=== PATIENT | female | born 1960 | race Caucasian/White ===

== ENCOUNTER 2018-01-17 12:00 | Emergency (ER) | payer MEDICARE, BC ==
[2018-01-17] MEDS ORDERED: Sodium Chloride 0.9% 10 ML Syringe FLUSH PRN (12:45)
[2018-01-17] MEDS ORDERED: Sodium Chloride 0.9% 1,000 ML IV ONE (12:45)
--- NOTE | 2018-01-17 13:38 | CR ---
Chest: Frontal view of the chest was obtained. Comparison: No prior chest x-ray. Heart size and mediastinum are normal. Lungs are clear with no acute parenchymal densities. Bony structures show scoliosis within the spine. Impression: 1. Nothing acute is appreciated on frontal chest x-ray. Diagnostic code #1
--- NOTE | 2018-01-17 14:55 | EDM.PDOC ---
ED HPI GENERAL MEDICAL PROBLEM - General Chief Complaint: Behavioral/Psych Stated Complaint: [facility] Time Seen by Provider: 01/17/18 12:25 Source of Information: Reports: Patient History Limitations: Reports: No Limitations - History of Present Illness INITIAL COMMENTS - FREE TEXT/NARRATIVE: 57-year-old female arrives via [facility] ambulance service from the [facility] for evaluation and treatment of syncope. Patient reports that she is "very ill" for the last few weeks. Feels this last week her symptoms have significantly worsening. She is currently complaining of generalized weakness. She reports numbness and tingling in the arms and legs. She states that she cannot get up and move due to her weakness and fatigue. She reports dizziness, only present with movement. She is also complaining of pain to the arms, legs and low back. When she is laying and resting she is not having dizziness at this time. She states she has chest pain and it is hard to breathe. She denies any headaches, fevers, chills or diarrhea. Reports no recent gastroenteritis. Patient feels her symptoms are due to her medications. She is on multiple medications for anxiety, depression and bipolar, she states that this happened about one year ago. She was in [facility]. She states that she needs her medications adjusted. She currently sees Dr. Chowdhury at [facility] and Dr. Simmons as her primary care provider. Leg Pain Score (Numeric/FACES): 3 - Related Data Allergies Allergy/AdvReac Type Severity Reaction Status Date / Time No Known Allergies Allergy Verified 01/17/18 12:13 Home Meds: Home Meds ClonazePAM [KlonoPIN] 0.5 mg PO TID 01/17/18 [History] Docusate Sodium [Colace] 100 mg PO BID 01/17/18 [History] Loratadine 10 mg PO DAILY 01/17/18 [History] QUEtiapine [SEROquel] 250 mg PO BEDTIME 01/17/18 [History] Vortioxetine Hydrobromide [Trintellix] 20 mg PO BEDTIME 01/17/18 [History] buPROPion [buPROPion XL] 450 mg PO DAILY 01/17/18 [History] Past Medical History Respiratory History: Reports: Asthma Psychiatric History: Reports: Anxiety, Bipolar, Depression, Other (See Below) Other Psychiatric History: has had procdure done ECT - Past Surgical History HEENT Surgical History: Reports: Cataract Surgery Female Surgical History: Reports: Tubal Ligation Social & Family History - Tobacco Use Smoking Status *Q: Former Smoker Used Tobacco, but Quit: Yes Month/Year Tobacco Last Used: 30 - Caffeine Use Caffeine Use: Reports: Coffee, Tea - Recreational Drug Use Recreational Drug Use: No ED ROS GENERAL - Review of Systems Review Of Systems: See Below Constitutional: Reports: Malaise, Weakness, Fatigue. Denies: Fever, Chills Respiratory: Reports: Shortness of Breath, Cough Cardiovascular: Reports: Chest Pain GI/Abdominal: Denies: Abdominal Pain, Diarrhea, Nausea, Vomiting Musculoskeletal: Reports: Back Pain (low back) Neurological: Reports: Numbness, Syncope, Tingling, Difficulty Walking (unable to walk). Denies: Headache ED EXAM, NEURO - Physical Exam Exam: See Below Exam Limited By: No Limitations General Appearance: Alert, WD/WN, No Apparent Distress, Thin Eye Exam: Bilateral Eye: Normal Inspection, PERRL Ears: Normal External Exam Nose: Normal Inspection Throat/Mouth: Normal Inspection, Normal Oropharynx, Normal Voice, No Airway Compromise Respiratory/Chest: No Respiratory Distress, Lungs Clear, Normal Breath Sounds Cardiovascular: Normal Peripheral Pulses, Regular Rate, Rhythm, No Murmur GI/Abdominal: Soft, Non-Tender Neurological: Alert, Normal Dorsiflexion, Normal Plantar Flexion, Other (unable to walk). No: Abnormal Sensation, Abnormal Light Touch, Abnormal Pin Prick, Babinski DTR: 1+: Achilles (R), Achilles (L), 2+: Bicep (R), Bicep (L) Extremities: Normal Inspection, Non-Tender Psychiatric: Anxious Skin Exam: Warm, Dry, Normal Color EKG INTERPRETATION EKG Date: 01/17/18 Time: 13:05 Rhythm: NSR Rate (Beats/Min): 73 [place]: Normal P-Wave: Present QRS: Normal ST-T: Normal QT: Normal EKG Interpretation Comments: NSR at 73 bpm. No acute changes. Reviewed by myself and Dr. Bijan Montes Course - Vital Signs Last Recorded V/S: Last Vital Signs Temp 36.7 C 01/17/18 12:12 Pulse 82 01/17/18 12:12 Resp 18 01/17/18 12:12 BP 140/96 H 01/17/18 12:12 Pulse Ox 100 01/17/18 12:12 Orthostatic Blood Pressure [ 150/77 Sitting] Orthostatic Blood Pressure [ 141/84 Supine] - Orders/Labs/Meds Orders: Active Orders 24 hr Category Date Time Status EKG Documentation Completion [RC] ASDIRECTED Care 01/17/18 12:45 Active Orthostatic Vital Signs [RC] ASDIRECTED Care 01/17/18 12:45 Active Peripheral IV Care [RC] . DIRECTED Care 01/17/18 12:45 Active DRUG SCREEN, URINE [URCHEM] Stat Lab 01/17/18 14:30 Ordered UA W/MICROSCOPIC [URIN] Stat Lab 01/17/18 14:30 Ordered Sodium Chloride 0.9% [Saline Flush] Med 01/17/18 12:45 Active 10 ml FLUSH ASDIRECTED PRN Peripheral IV Insertion Adult [OM.PC] Routine Oth 01/17/18 12:45 Ordered EKG 12 Lead [EK] Stat Ther 01/17/18 12:45 Ordered Medication Orders Sodium Chloride (Saline Flush) 10 ml FLUSH ASDIRECTED PRN PRN Reason: Keep Vein Open Last Admin: 01/17/18 13:20 Dose: 10 ml Labs: Laboratory Tests 01/17/18 01/17/18 01/17/18 Range/Units 13:25 13:25 13:25 WBC 4.16 (3.98-10.04) K/mm3 RBC 4.65 (3.98-5.22) M/mm3 Hgb 14.1 (11.2-15.7) gm/L Hct 41.6 (34.1-44.9) % MCV 89.5 (79.4-94.8) fl MCH 30.3 (25.6-32.2) pg MCHC 33.9 (32.2-35.5) g/dl RDW Std Deviation 40.6 (36.4-46.3) fL Plt Count 276 (182-369) K/mm3 MPV 10.3 (9.4-12.3) fl Neutrophils % (Manual) 41 (40-60) % Band Neutrophils % 0 (0-10) % Lymphocytes % (Manual) 51 H (20-40) % Atypical Lymphs % 0 % Monocytes % (Manual) 7 (2-10) % Eosinophils % (Manual) 0 L (0.7-5.8) % Basophils % (Manual) 1 (0.1-1.2) Platelet Estimate Adequate RBC Morph Comment Normal Sodium 137 (136-145) mEq/L Potassium 4.4 (3.5-5.1) mEq/L Chloride 100 (98-107) mEq/L Carbon Dioxide 21 (21-32) mEq/L Anion Gap 20.4 H (5-15) BUN 20 H (7-18) mg/dL Creatinine 1.0 (0.55-1.02) mg/dL Est Cr Clr Drug Dosing 57.08 mL/min Estimated GFR (MDRD) 57 (>60) mL/min BUN/Creatinine Ratio 20.0 H (14-18) Glucose 81 (74-106) mg/dL Calcium 9.5 (8.5-10.1) mg/dL Total Bilirubin 0.6 (0.2-1.0) mg/dL AST 13 L (15-37) U/L ALT 19 (14-59) U/L Alkaline Phosphatase 79 (46-116) U/L Creatine Kinase 111 (26-192) U/L Troponin I < 0.017 (0.00-0.056) ng/mL C-Reactive Protein < 0.2 (<1.0) mg/dL Total Protein 8.2 (6.4-8.2) g/dl Albumin 4.3 (3.4-5.0) g/dl Globulin 3.9 gm/dL Albumin/Globulin Ratio 1.1 (1-2) TSH 3rd Generation 2.207 (0.358-3.74) uIU/mL HCG, Qual (NEGATIVE) Urine Color (Yellow) Urine Appearance (Clear) Urine pH (5.0-8.0) Ur Specific [place] (1.005-1.030) Urine Protein (Negative) Urine Glucose (UA) (Negative) Urine Ketones (Negative) Urine Occult Blood (Negative) Urine Nitrite (Negative) Urine Bilirubin (Negative) Urine Urobilinogen (0.2-1.0) Ur Leukocyte Esterase (Negative) Urine RBC (0-5) /hpf Urine WBC (0-5) /hpf Ur Epithelial Cells (0-5) /hpf Urine Bacteria (FEW) /hpf Urine Mucus (FEW) /hpf Salicylates (2.8-20) mg/dL Urine Opiates Screen (NEGATIVE) Ur Buprenorphine Scrn (NEGATIVE) Ur Oxycodone Screen (NEGATIVE) Urine Methadone Screen (NEGATIVE) Ur Propoxyphene Screen (NEGATIVE) Acetaminophen (10-30) ug/mL Ur Barbiturates Screen (NEGATIVE) Ur Tricyclics Screen (NEGATIVE) Ur Phencyclidine Scrn (NEGATIVE) Ur Amphetamine Screen (NEGATIVE) U Methamphetamines Scrn (NEGATIVE) U Benzodiazepines Scrn (NEGATIVE) U Cocaine Metab Screen (NEGATIVE) U Marijuana (THC) Screen (NEGATIVE) Ethyl Alcohol 0.00 (0.00) gm% 01/17/18 01/17/18 01/17/18 Range/Units 13:25 13:25 13:25 WBC (3.98-10.04) K/mm3 RBC (3.98-5.22) M/mm3 Hgb (11.2-15.7) gm/L Hct (34.1-44.9) % MCV (79.4-94.8) fl MCH (25.6-32.2) pg MCHC (32.2-35.5) g/dl RDW Std Deviation (36.4-46.3) fL Plt Count (182-369) K/mm3 MPV (9.4-12.3) fl Neutrophils % (Manual) (40-60) % Band Neutrophils % (0-10) % Lymphocytes % (Manual) (20-40) % Atypical Lymphs % % Monocytes % (Manual) (2-10) % Eosinophils % (Manual) (0.7-5.8) % Basophils % (Manual) (0.1-1.2) Platelet Estimate RBC Morph Comment Sodium (136-145) mEq/L Potassium (3.5-5.1) mEq/L Chloride (98-107) mEq/L Carbon Dioxide (21-32) mEq/L Anion Gap (5-15) BUN (7-18) mg/dL Creatinine (0.55-1.02) mg/dL Est Cr Clr Drug Dosing mL/min Estimated GFR (MDRD) (>60) mL/min BUN/Creatinine Ratio (14-18) Glucose (74-106) mg/dL Calcium (8.5-10.1) mg/dL Total Bilirubin (0.2-1.0) mg/dL AST (15-37) U/L ALT (14-59) U/L Alkaline Phosphatase (46-116) U/L Creatine Kinase (26-192) U/L Troponin I (0.00-0.056) ng/mL C-Reactive Protein (<1.0) mg/dL Total Protein (6.4-8.2) g/dl Albumin (3.4-5.0) g/dl Globulin gm/dL Albumin/Globulin Ratio (1-2) TSH 3rd Generation (0.358-3.74) uIU/mL HCG, Qual Negative (NEGATIVE) Urine Color (Yellow) Urine Appearance (Clear) Urine pH (5.0-8.0) Ur Specific [place] (1.005-1.030) Urine Protein (Negative) Urine Glucose (UA) (Negative) Urine Ketones (Negative) Urine Occult Blood (Negative) Urine Nitrite (Negative) Urine Bilirubin (Negative) Urine Urobilinogen (0.2-1.0) Ur Leukocyte Esterase (Negative) Urine RBC (0-5) /hpf Urine WBC (0-5) /hpf Ur Epithelial Cells (0-5) /hpf Urine Bacteria (FEW) /hpf Urine Mucus (FEW) /hpf Salicylates 1.0 L (2.8-20) mg/dL Urine Opiates Screen (NEGATIVE) Ur Buprenorphine Scrn (NEGATIVE) Ur Oxycodone Screen (NEGATIVE) Urine Methadone Screen (NEGATIVE) Ur Propoxyphene Screen (NEGATIVE) Acetaminophen 0 L (10-30) ug/mL Ur Barbiturates Screen (NEGATIVE) Ur Tricyclics Screen (NEGATIVE) Ur Phencyclidine Scrn (NEGATIVE) Ur Amphetamine Screen (NEGATIVE) U Methamphetamines Scrn (NEGATIVE) U Benzodiazepines Scrn (NEGATIVE) U Cocaine Metab Screen (NEGATIVE) U Marijuana (THC) Screen (NEGATIVE) Ethyl Alcohol (0.00) gm% 01/17/18 01/17/18 Range/Units 14:30 14:30 WBC (3.98-10.04) K/mm3 RBC (3.98-5.22) M/mm3 Hgb (11.2-15.7) gm/L Hct (34.1-44.9) % MCV (79.4-94.8) fl MCH (25.6-32.2) pg MCHC (32.2-35.5) g/dl RDW Std Deviation (36.4-46.3) fL Plt Count (182-369) K/mm3 MPV (9.4-12.3) fl Neutrophils % (Manual) (40-60) % Band Neutrophils % (0-10) % Lymphocytes % (Manual) (20-40) % Atypical Lymphs % % Monocytes % (Manual) (2-10) % Eosinophils % (Manual) (0.7-5.8) % Basophils % (Manual) (0.1-1.2) Platelet Estimate RBC Morph Comment Sodium (136-145) mEq/L Potassium (3.5-5.1) mEq/L Chloride (98-107) mEq/L Carbon Dioxide (21-32) mEq/L Anion Gap (5-15) BUN (7-18) mg/dL Creatinine (0.55-1.02) mg/dL Est Cr Clr Drug Dosing mL/min Estimated GFR (MDRD) (>60) mL/min BUN/Creatinine Ratio (14-18) Glucose (74-106) mg/dL Calcium (8.5-10.1) mg/dL Total Bilirubin (0.2-1.0) mg/dL AST (15-37) U/L ALT (14-59) U/L Alkaline Phosphatase (46-116) U/L Creatine Kinase (26-192) U/L Troponin I (0.00-0.056) ng/mL C-Reactive Protein (<1.0) mg/dL Total Protein (6.4-8.2) g/dl Albumin (3.4-5.0) g/dl Globulin gm/dL Albumin/Globulin Ratio (1-2) TSH 3rd Generation (0.358-3.74) uIU/mL HCG, Qual (NEGATIVE) Urine Color Light yellow (Yellow) Urine Appearance Clear (Clear) Urine pH 6.5 (5.0-8.0) Ur Specific [place] 1.015 (1.005-1.030) Urine Protein Negative (Negative) Urine Glucose (UA) Negative (Negative) Urine Ketones 2+ H (Negative) Urine Occult Blood Negative (Negative) Urine Nitrite Negative (Negative) Urine Bilirubin Negative (Negative) Urine Urobilinogen 0.2 (0.2-1.0) Ur Leukocyte Esterase Trace H (Negative) Urine RBC 0-5 (0-5) /hpf Urine WBC 0-5 (0-5) /hpf Ur Epithelial Cells Not seen (0-5) /hpf Urine Bacteria Not seen (FEW) /hpf Urine Mucus Not seen (FEW) /hpf Salicylates (2.8-20) mg/dL Urine Opiates Screen Negative (NEGATIVE) Ur Buprenorphine Scrn Negative (NEGATIVE) Ur Oxycodone Screen Negative (NEGATIVE) Urine Methadone Screen Negative (NEGATIVE) Ur Propoxyphene Screen Negative (NEGATIVE) Acetaminophen (10-30) ug/mL Ur Barbiturates Screen Negative (NEGATIVE) Ur Tricyclics Screen Negative (NEGATIVE) Ur Phencyclidine Scrn Negative (NEGATIVE) Ur Amphetamine Screen Negative (NEGATIVE) U Methamphetamines Scrn Negative (NEGATIVE) U Benzodiazepines Scrn Negative (NEGATIVE) U Cocaine Metab Screen Negative (NEGATIVE) U Marijuana (THC) Screen Negative (NEGATIVE) Ethyl Alcohol (0.00) gm% Meds: Medications Generic Name Dose Route Start Last Admin Trade Name Freq PRN Reason Stop Dose Admin Sodium Chloride 10 ml 01/17/18 12:45 01/17/18 13:20 Saline Flush FLUSH 10 ml ASDIRECTED PRN Administration Keep Vein Open Discontinued Medications Generic Name Dose Route Start Last Admin Trade Name Freq PRN Reason Stop Dose Admin Sodium Chloride 1,000 mls @ 999 mls/hr 01/17/18 12:45 01/17/18 13:20 Normal Saline IV 01/17/18 13:45 999 mls/hr ONETIME ONE Administration Lorazepam 1 mg 01/17/18 15:20 01/17/18 18:14 Ativan IVPUSH 01/17/18 15:21 Not Given ONETIME ONE - Radiology Interpretation Free Text/Narrative:: Chest x-ray shows no acute intrathoracic process. - Re-Assessments/Exams Free Text/Narrative Re-Assessment/Exam: 01/17/18 15:51 Patient was shaking proclaiming "I'm having a seizure ". No obvious seizure. 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 I ordered her 1 mg IV Ativan which she declined. I asked Dr. Bijan Montes to see the patient as she is becoming quite difficult. She is adamant that she be admitted and is requesting to go to [place]. Dr. Montes has seen the patient and agrees this is likely conversion disorder. 01/17/18 18:22 I contacted [facility]. Given her symptoms, unable at this time to perform activities of daily living, unable to accept her as that unit is currently full. I discussed this with the patient told her that if her symptoms have improved and she can perform activities of daily living I could potentially send her to [place]. Since hearing this her symptoms have improved and she has full range of motion of her hands and her feet are steadily improving. Her mom states that her paralysis normally only last several hours. I do feel she needs to be admitted as she continues to have "paralysis" . I feel this is possibly conversion disorder. I did talk with Dr. Dania benitez at [facility] in [place]. He is unable to admit her for conversion disorder. Recommended I contact medical. I detected Dr. Hidalgo, hospitalist, she has agreed to accept the patient. I discussed with the patient going ambulance versus private vehicle. Family has some concerns with her going by private vehicle. Patient feels that she needs an ambulance transfer. We will transfer by ambulance to [place] for further workup of her paralysis as well as psychiatric consult. Departure - Departure Time of Disposition: 18:55 Disposition: DC/Tfer to Acute Hospital 02 Condition: Fair Clinical Impression: Paralysis, Bipolar 2 disorder - Discharge Information Referrals: Rey He MD [Primary Care Provider] - Forms: ED Department Discharge Additional Instructions: Patient to be transported by ground EMS to [place] in [place]. Dr. Hidalgo accepting. - My Orders Last 24 Hours: My Active Orders 01/17/18 12:45 EKG Documentation Completion [RC] ASDIRECTED Orthostatic Vital Signs [RC] ASDIRECTED Peripheral IV Care [RC] . DIRECTED Sodium Chloride 0.9% [Saline Flush] 10 ml FLUSH ASDIRECTED PRN Peripheral IV Insertion Adult [OM.PC] Routine EKG 12 Lead [EK] Stat 01/17/18 14:30 DRUG SCREEN, URINE [URCHEM] Stat UA W/MICROSCOPIC [URIN] Stat - Assessment/Plan Last 24 Hours: My Active Orders 01/17/18 12:45 EKG Documentation Completion [RC] ASDIRECTED Orthostatic Vital Signs [RC] ASDIRECTED Peripheral IV Care [RC] . DIRECTED Sodium Chloride 0.9% [Saline Flush] 10 ml FLUSH ASDIRECTED PRN Peripheral IV Insertion Adult [OM.PC] Routine EKG 12 Lead [EK] Stat 01/17/18 14:30 DRUG SCREEN, URINE [URCHEM] Stat UA W/MICROSCOPIC [URIN] Stat
[2018-01-17] MEDS ORDERED: LORazepam 2 MG/ML SDV IVPUSH ONE (15:20)
== END 2018-01-17 19:00 ==
LOC: JD.ED 12:00 → SUPCPDRO 12:00 → JD.ED 19:00
DX: G83.9 Paralytic syndrome, unspecified (principal); F31.81 Bipolar II disorder; Z79.899 Other long term (current) drug therapy; Z87.891 Personal history of nicotine dependence
CPT/HCPCS: 36415; 71045; 80053; 80306; 81001; 82550; 84443; 84484; 84703; 85007; 85027; 86140; 93005; 96360; 99285; G0480; J7040; J7050; 93010; 99284

== ENCOUNTER 2019-09-29 14:17 | Emergency (ER) | payer MEDICARE, BC ==
--- NOTE | 2019-09-29 14:38 | EDM.PDOC ---
ED HPI GENERAL MEDICAL PROBLEM - General Chief Complaint: Head Injury Stated Complaint: HEAD INJURY Time Seen by Provider: 09/29/19 14:27 Source of Information: Reports: Patient History Limitations: Reports: No Limitations - History of Present Illness INITIAL COMMENTS - FREE TEXT/NARRATIVE: Patient's unfortunate 59-year-old female who presents emergency Department today with complaint of headache. Patient reports that she was in her normal state of health until one week ago when she was walking up some steps and lost her balance and fell backwards and hit the back of her head on the steps that she slid down 2 deaths. Her loss of consciousness did not have any nausea no vomiting however, she continues to have headache which she reports is a dull aching type headache to the frontal part of her head. And secondary this patient presented to the emergency Department today for further evaluation. Patient has a long-standing history of what she reports as chronic conversion disorder and bipolar Head Pain Score (Numeric/FACES): 7 - Related Data Allergies Allergy/AdvReac Type Severity Reaction Status Date / Time No Known Allergies Allergy Verified 09/29/19 14:33 Home Meds: Home Meds ClonazePAM [KlonoPIN] 0.5 mg PO TID 01/17/18 [History] Docusate Sodium [Colace] 100 mg PO BID 01/17/18 [History] Loratadine 10 mg PO DAILY 01/17/18 [History] QUEtiapine [SEROquel] 250 mg PO BEDTIME 01/17/18 [History] Vortioxetine Hydrobromide [Trintellix] 20 mg PO BEDTIME 01/17/18 [History] buPROPion [buPROPion XL] 450 mg PO DAILY 01/17/18 [History] Past Medical History Respiratory History: Reports: Asthma Psychiatric History: Reports: Anxiety, Bipolar, Depression, Other (See Below) Other Psychiatric History: has had procdure done ECT - Past Surgical History HEENT Surgical History: Reports: Cataract Surgery Female Surgical History: Reports: Tubal Ligation Social & Family History - Caffeine Use Caffeine Use: Reports: Coffee, Tea ED ROS GENERAL - Review of Systems Review Of Systems: See Below Constitutional: Denies: Fever, Chills GI/Abdominal: Denies: Nausea, Vomiting Neurological: Reports: Headache. Denies: Confusion, Dizziness ED EXAM, HEAD INJURY - Physical Exam Exam: See Below Exam Limited By: No Limitations General Appearance: Alert, WD/WN, Mild Distress Head: Atraumatic, Normocephalic Eyes: Bilateral Eye: EOMI, PERRL Ears: Normal External Exam, Normal Canal, Hearing Grossly Normal, Normal TMs Nose: Normal Inspection, Normal Mucousa, No Blood Throat/Mouth: Normal Inspection, Normal Lips, Normal Teeth, Normal Gums, Normal Oropharynx, Normal Voice, No Airway Compromise Neck: Non-Tender, Full Range of Motion, Normal Alignment, Normal Inspection Respiratory: No Respiratory Distress, Lungs Clear, Normal Breath Sounds, No Accessory Muscle Use, Chest Non-Tender Cardiovascular: Normal Peripheral Pulses, Regular Rate, Rhythm, No Edema, No Gallop, No JVD, No Murmur, No Rub GI/Abdominal Exam: Normal Bowel Sounds, Soft, Non-Tender, No Organomegaly, No Distention, No Abnormal Bruit, No Mass Back Exam: Full Range of Motion, Normal Inspection, NT Extremities: Normal Inspection, Normal Range of Motion, Non-Tender, No Pedal Edema, Normal Capillary Refill Neurologic: [facility] facility psychiatrist II-XII nml As Tested, No Motor/Sensory Deficits, Alert, Normal Mood/Affect, Oriented x 3 Course - Vital Signs Last Recorded V/S: Last Vital Signs Temp 97.5 F 09/29/19 14:23 Pulse 72 09/29/19 14:23 Resp 18 09/29/19 14:23 BP 134/90 09/29/19 14:23 Pulse Ox 97 09/29/19 14:23 - Re-Assessments/Exams Free Text/Narrative Re-Assessment/Exam: 09/29/19 15:45 CT head showed no acute process we'll discharge to home Departure - Departure Time of Disposition: 15:46 Disposition: Home, Self-Care 01 Clinical Impression: Post-concussion headache - Discharge Information Referrals: Rey He MD [Primary Care Provider] - Forms: ED Department Discharge Additional Instructions: Home, rest, Tylenol for pain, return as needed for worsening condition Sepsis Event Note - Evaluation Sepsis Screening Result: No Definite Risk - Focused Exam Vital Signs: Vital Signs Temp Pulse Resp BP Pulse Ox 09/29/19 14:23 97.5 F 72 18 134/90 97 Date Exam was Performed: 09/29/19 Time Exam was Performed: 15:45
--- NOTE | 2019-09-29 15:26 | CT ---
Head CT Technique: Multiple axial sections through the brain were obtained. Intravenous contrast was not utilized. Comparison: No prior intracranial imaging is available. Findings: Ventricles along with basal cisterns and sulci over the convexities are mildly prominent. No abnormal parenchymal densities are seen. No evidence of intracranial hemorrhage. No midline shift or mass effect is seen. Bone window settings were reviewed. No acute calvarial abnormality is seen. Mastoid sinuses show nothing acute. Visualized paranasal sinuses show nothing acute. Impression: 1. Mild generalized atrophy. 2. No acute intracranial abnormality is appreciated. Diagnostic code #2 This report was dictated in [place] Standard Time
== END 2019-09-29 16:07 | disposition home or self-care (01) ==
LOC: JD.ED 14:17
DX: F07.81 Postconcussional syndrome (principal); J45.909 Unspecified asthma, uncomplicated; F41.9 Anxiety disorder, unspecified; F32.9 Major depressive disorder, single episode, unspecified; Z79.899 Other long term (current) drug therapy
CPT/HCPCS: 70450; 70450-26; 99284-25

== ENCOUNTER 2022-02-06 20:56 | Emergency (ER) | payer MEDICARE, BC | END 2022-02-07 00:37 | disposition home or self-care (01) | LOC: JD.ED 20:56 | DX: S80.01XA Contusion of right knee, initial encounter (principal); S70.12XA Contusion of left thigh, initial encounter; S40.022A Contusion of left upper arm, initial encounter; S40.021A Contusion of right upper arm, initial encounter; D64.89 Other specified anemias; L50.9 Urticaria, unspecified | CPT/HCPCS: 36415; 80053; 85025; 85379; 85610; 85730; 93971-26-RT; 93971-RT; 99284; 99284-25 ==

== ENCOUNTER 2022-05-26 19:57 | Emergency (ER) | payer MEDICARE, BC ==
[2022-05-26 20:59] LABS: ESTIMATED GFR 42 mL/min (>60)
[2022-05-26 22:01] LABS: CORONAVIRUS COVID-19 NAA NEGATIVE (NEGATIVE)
== END 2022-05-26 23:03 | disposition home or self-care (01) ==
LOC: JD.ED 19:57
DX: R07.89 Other chest pain (principal); Z20.822 Contact with and (suspected) exposure to COVID-19
CPT/HCPCS: 0240U; 36415; 71046; 80053; 83735; 83880; 84484; 85025; 85379; 93005; 99285; 93010; 99283

== ENCOUNTER 2023-02-04 05:42 | Emergency (ER) | payer MEDICARE, BC ==
[2023-02-04 06:24] LABS: BASOPHILS ABSOLUTE AUTO 0.03 K/mm3 (0.01-0.08); BASOPHILS PERCENT AUTO 0.4 % (0.1-1.2); EOSINOPHILS ABSOLUTE AUTO 0.01 K/mm3 (0.04-0.36); EOSINOPHILS PERCENT AUTO 0.1 (0.7-5.8); HEMATOCRIT 36.5 % (34.1-44.9); HEMOGLOBIN 12.1 gm/dl (11.2-15.7); IMMATURE GRAN ABSOLUTE AUTO 0.05 K/mm3 (0.00-0.10); IMMATURE GRAN PERCENT AUTO 0.7 % (<=1.0); LYMPHOCYTES ABSOLUTE AUTO 1.69 K/mm3 (1.18-3.74); LYMPHOCYTES PERCENT AUTO 25.1 % (19.3-51.7); MEAN CORPUSCULAR HEMOGLOBIN 30.8 pg (25.6-32.2); MEAN CORPUSCULAR HGB CONC 33.2 g/dl (32.2-35.5); MEAN CORPUSCULAR VOLUME 92.9 fl (79.4-94.8); MEAN PLATELET VOLUME 9.6 fl (9.4-12.3); MONOCYTES ABSOLUTE AUTO 0.57 K/mm3 (0.24-0.36); MONOCYTES PERCENT AUTO 8.5 % (4.7-12.5); NEUTROPHILS ABSOLUTE AUTO 4.39 K/mm3 (1.56-6.13); NEUTROPHILS PERCENT AUTO 65.2 % (34.0-71.1); PLATELET COUNT,PLT 335 K/mm3 (182-369); RED BLOOD CELL COUNT 3.93 M/mm3 (3.98-5.22); WHITE BLOOD CELL COUNT,WBC 6.74 K/mm3 (3.98-10.04)
[2023-02-04 06:46] LABS: ALBUMIN 3.5 g/dl (3.4-5.0); ANION GAP 14.8 (5-15); BILIRUBIN TOTAL 0.4 mg/dL (0.2-1.0); CALCIUM 9.2 mg/dL (8.5-10.1); EST CRCL DRUG DOSING (CG) 51.81 mL/min; POTASSIUM,K 3.8 mEq/L (3.5-5.1); PROTEIN TOTAL,TP 7.2 g/dl (6.4-8.2)
== END 2023-02-04 11:40 | disposition home or self-care (01) ==
LOC: JD.ED 05:42
DX: F44.6 Conversion disorder with sensory symptom or deficit (principal); R53.1 Weakness; I10 Essential (primary) hypertension; J45.909 Unspecified asthma, uncomplicated; Z88.5 Allergy status to narcotic agent; Z79.899 Other long term (current) drug therapy
CPT/HCPCS: 36415; 80053; 80307; 82550; 85025; 86850; 86900; 86901; 99282; 99285

== ENCOUNTER 2023-09-12 11:17 | Emergency (ER) | payer MEDICARE, BC ==
[2023-09-12] MEDS ORDERED: Ondansetron 4 MG/2 ML SDV IVPUSH ONE (11:41)
[2023-09-12] MEDS ORDERED: Lactated Ringers 1,000 ML IV ONE (11:41)
[2023-09-12] MEDS ORDERED: Sodium Chloride 0.9% 10 ML Syringe FLUSH PRN (11:41)
[2023-09-12 12:31] LABS: BASOPHILS PERCENT AUTO 0.4 % (0.0-1.0); HEMATOCRIT 36.5 % (37.0-47.0); HEMOGLOBIN 12.6 gm/dl (12.0-16.0); IMMATURE GRAN ABSOLUTE AUTO 0.02 K/mm3 (0.00-0.05); IMMATURE GRAN PERCENT AUTO 0.4 % (0.0-0.4); LYMPHOCYTES ABSOLUTE AUTO 1.4 K/mm3 (1.0-4.8); LYMPHOCYTES PERCENT AUTO 29.1 % (24.0-44.0); MEAN CORPUSCULAR HEMOGLOBIN 31.4 pg (28.0-32.0); MEAN CORPUSCULAR HGB CONC 34.5 g/dl (32.0-36.0); MEAN PLATELET VOLUME 9.5 fl (9.4-12.3); MONOCYTES ABSOLUTE AUTO 0.6 K/mm3 (0.0-0.8); NEUTROPHILS ABSOLUTE AUTO 2.7 K/mm3 (1.8-7.7); NEUTROPHILS PERCENT AUTO 58.1 % (41.0-71.0); PLATELET COUNT,PLT 232 K/mm3 (150-400); RED BLOOD CELL COUNT 4.01 M/mm3 (4.10-5.30); WHITE BLOOD CELL COUNT,WBC 4.68 K/mm3 (3.9-11.3)
[2023-09-12 12:48] LABS: ALBUMIN 3.7 g/dl (3.4-5.0); ANION GAP 15.6 (5-15); BILIRUBIN TOTAL 0.6 mg/dL (0.2-1.0); CALCIUM 9.4 mg/dL (8.5-10.1); CREATININE 1.1 mg/dL (0.55-1.02); EST CRCL DRUG DOSING (CG) 47.43 mL/min; POTASSIUM,K 3.6 mEq/L (3.5-5.1); PROTEIN TOTAL,TP 7.3 g/dl (6.4-8.2)
[2023-09-12 12:52] LABS: CORONAVIRUS COVID-19 NAA NEGATIVE (NEGATIVE); INFLUENZA A NAA NEGATIVE (NEGATIVE); RESPIRATORY SYNCYTIAL VIR NAA NEGATIVE (NEGATIVE)
[2023-09-12 12:55] LABS: MAGNESIUM 1.9 mg/dL (1.8-2.4); TSH 2.245 uIU/mL (0.358-3.74)
[2023-09-12 13:05] LABS: APPEARANCE,URINE CLEAR (Clear); BILIRUBIN,URINE NEGATIVE (Negative); COLOR,URINE LIGHT YELLOW (Yellow); GLUCOSE,URINE NEGATIVE (Negative); KETONES,URINE TRACE (Negative); LEUKOCYTE ESTERASE,URINE NEGATIVE (Negative); NITRITE,URINE NEGATIVE (Negative); OCCULT BLOOD,URINE NEGATIVE (Negative); PH,URINE 8.5 (5.0-8.0); PROTEIN,URINE NEGATIVE (Negative); UROBILINOGEN,URINE 0.2 (0.2-1.0)
[2023-09-12 13:27] LABS: FOLIC ACID 47.6 ng/mL (8.6-58.9)
== END 2023-09-12 14:20 | disposition home or self-care (01) ==
LOC: JD.ED 11:17
DX: F44.4 Conversion disorder with motor symptom or deficit (principal); F44.6 Conversion disorder with sensory symptom or deficit; J45.909 Unspecified asthma, uncomplicated; Z88.5 Allergy status to narcotic agent; Z20.822 Contact with and (suspected) exposure to COVID-19
CPT/HCPCS: 0241U; 36415; 80053; 81003; 82607; 82746; 83735; 84443; 85025; 96360; 99284; J3490; J7120

== ENCOUNTER 2024-05-28 16:15 | Emergency (ER) | payer MEDICARE, BC ==
[2024-05-28] MEDS: Cyclobenzaprine 10 MG Tab PO ONE (17:31)
[2024-05-28] MEDS: Ketorolac 30 MG/ML SDV IVPUSH ONE (17:33)
[2024-05-28] MEDS ORDERED: Sodium Chloride 0.9% 500 ML IRR ONE (17:49)
[2024-05-28] MEDS: HYDROmorphone 0.5 MG/0.5 ML Syringe IVPUSH ONE (18:58)
[2024-05-28 19:29] LABS: BASOPHILS ABSOLUTE AUTO 0.1 K/mm3 (0.0-0.2); BASOPHILS PERCENT AUTO 0.9 % (0.0-1.0); EOSINOPHILS PERCENT AUTO 0.2 % (0.0-6.0); HEMATOCRIT 36.1 % (37.0-47.0); IMMATURE GRAN ABSOLUTE AUTO 0.02 K/mm3 (0.00-0.05); IMMATURE GRAN PERCENT AUTO 0.3 % (0.0-0.4); LYMPHOCYTES ABSOLUTE AUTO 2.3 K/mm3 (1.0-4.8); LYMPHOCYTES PERCENT AUTO 34.1 % (24.0-44.0); MEAN CORPUSCULAR HEMOGLOBIN 31.3 pg (28.0-32.0); MEAN CORPUSCULAR HGB CONC 33.2 g/dl (32.0-36.0); MEAN CORPUSCULAR VOLUME 94.3 fl (83.0-99.0); MEAN PLATELET VOLUME 9.7 fl (9.4-12.3); MONOCYTES ABSOLUTE AUTO 0.6 K/mm3 (0.0-0.8); MONOCYTES PERCENT AUTO 9.6 % (0.0-8.0); NEUTROPHILS ABSOLUTE AUTO 3.6 K/mm3 (1.8-7.7); NEUTROPHILS PERCENT AUTO 54.9 % (41.0-71.0); PLATELET COUNT,PLT 304 K/mm3 (150-400); RED BLOOD CELL COUNT 3.83 M/mm3 (4.10-5.30); WHITE BLOOD CELL COUNT,WBC 6.59 K/mm3 (3.9-11.3)
[2024-05-28 19:49] LABS: A/G RATIO 1.4 (1-2); ALBUMIN 4.2 g/dl (3.4-5.0); ANION GAP 11.2 (5-15); BILIRUBIN TOTAL 0.4 mg/dL (0.2-1.0); BUN/CREATININE RATIO 18.9 (14-18); CALCIUM 9.2 mg/dL (8.5-10.1); CREATININE 0.9 mg/dL (0.55-1.02); EST CRCL DRUG DOSING (CG) 57.21 mL/min; MAGNESIUM 2.1 mg/dL (1.8-2.4); POTASSIUM,K 4.2 mEq/L (3.5-5.1); PROTEIN TOTAL,TP 7.3 g/dl (6.4-8.2)
== END 2024-05-28 20:53 | disposition home or self-care (01) ==
LOC: JD.ED 16:15
DX: M25.562 Pain in left knee (principal); I10 Essential (primary) hypertension; Z79.899 Other long term (current) drug therapy; Z88.5 Allergy status to narcotic agent; X50.9XXA Other and unspecified overexertion or strenuous movements or postures, initial encounter
CPT/HCPCS: 36415; 73562; 80053; 83735; 85025; 96374; 96375; 99284; A9270; J1170; J1885; J3360